=== PATIENT | male | born 2000 | race Caucasian/White ===

== ENCOUNTER 2018-01-29 10:41 | Observation (INO) | payer OTHER ==
[2018-01-29] MEDS ORDERED: LR 1,000 ML IV ONE (11:35)
[2018-01-29] MEDS ORDERED: LIDOCAINE 1% 2 ML INJ ID PRN (11:35)
[2018-01-29] MEDS ORDERED: OXYMETAZOLINE 30 ML NASAL SPRAY ONE (11:47)
[2018-01-29] MEDS ORDERED: BACITRACIN ZINC 14.2 GM OINTTUBE TP ONE (11:47)
[2018-01-29] MEDS ORDERED: MIDAZOLAM 2 MG/2 ML VIAL IVP ONE (11:47)
--- NOTE | 2018-01-29 11:47 | PDHPUP ---
History & Physical Update H&P update statement: This history and physical update is based on an assessment of the patient which was completed after admission or registration (within 24 hours), but prior to the surgery/procedure. H&P update: H&P reviewed & patient examined, no change in patient's condition since H&P completed
[2018-01-29] MEDS ORDERED: BUPIVACAINE/EPI 0.25% 30 ML SDV ONE (11:48)
[2018-01-29] MEDS ORDERED: LIDO/EPI 1% **Not for Epidural 20 ML MDV ONE (11:48)
[2018-01-29] MEDS ORDERED: MIDAZOLAM 2 MG/2 ML VIAL ONE (11:48)
--- NOTE | 2018-01-29 11:48 | PDANEPAE ---
ANE Past Medical History - Cardiovascular History Hx Hypertension: No Hx Arrhythmias: No Hx Chest Pain: No Hx Coronary Artery / Peripheral Vascular Disease: No Hx CHF / Valvular Disease: No Hx Palpitations: No - Pulmonary History Hx COPD: No Hx Asthma/Reactive Airway Disease: No Hx Recent Upper Respiratory Infection: No Hx Oxygen in Use at Home: No Hx Sleep Apnea: Yes Sleep Apnea Screening Result - Last Documented: Positive Pulmonary History Comment: SAMRA positive - uses Cpap - Neurologic History Hx Cerebrovascular Accident: No Hx Seizures: No Hx Dementia: No - Endocrine History Hx Diabetes: No - Renal History Hx Renal Disorders: No - Liver History Hx Hepatic Disorders: No - Neurological & Psychiatric Hx Hx Neurological and Psychiatric Disorders: Yes Neurological / Psychiatric History Comment: states was dx with depression a few years ago but not an issue recently - Cancer History Hx Cancer: Yes Cancer History Comment: spinal kyphosis - Congenital Disorder History Hx Congenital Disorders: No - GI History Hx Gastrointestinal Disorders: No - Other Health History Other Health History: has permanent bridge retainer on lower teeth. deviated septum - Chronic Pain History Chronic Pain: Yes (back pain) - Surgical History Prior Surgeries: meringoplasty. left arm reset ANE Review of Systems Review of Systems: - Exercise capacity METS (RN): 5 METS ANE Patient History - Allergies Allergies/Adverse Reactions: No Known Allergies Allergy (Verified 01/20/18 15:52) - Home Medications Home Medications: Multivitamins [Multivitamin (*)] 1 each PO DAILY 01/20/18 [Last Taken 01/26/18] - Smoking Hx Smoking Status: Never smoked - Family Anes Hx Family Hx Anesthesia Complications: none ANE Labs/Vital Signs - Vital Signs Height: 195.58 cm Weight: 95.254 kg ANE Physical Exam - Airway Neck exam: FROM Mallampati Score: Class 2 Mouth exam: normal dental/mouth exam - Pulmonary Pulmonary: no respiratory distress - Cardiovascular Cardiovascular: regular rate and rhythym - ASA Status ASA Status: I ANE Anesthesia Plan Anesthesia Plan: general endotracheal anesthesia
[2018-01-29] MEDS ORDERED: fentaNYL 250 MCG/5 ML INJ ONE (11:54)
[2018-01-29] MEDS ORDERED: PROPOFOL 200 MG/20 ML VIAL ONE (11:54)
[2018-01-29] MEDS ORDERED: DEXAMETHASONE 4 MG/ML VIAL ONE ×2 (11:54)
[2018-01-29] MEDS ORDERED: ROCURONIUM 50 MG/5 ML VIAL ONE (11:54)
[2018-01-29] MEDS ORDERED: LABETALOL HCL 5 MG/ML 20 ML MDV ONE (13:32)
[2018-01-29] MEDS ORDERED: SUGAMMADEX SODIUM 200 MG/2 ML VIAL IVP ONE (13:33)
[2018-01-29] MEDS ORDERED: MEPERIDINE 25 MG/0.5 ML AMP IVP PRN (14:58)
[2018-01-29] MEDS ORDERED: ONDANSETRON 4 MG/2 ML VIAL IVP PRN (14:58)
[2018-01-29] MEDS ORDERED: NALOXONE HCL 0.4 MG/ML INJ IVP PRN ×2 (14:58)
[2018-01-29] MEDS ORDERED: ALBUTEROL 3 ML DEYVIAL IH PRN (14:58)
[2018-01-29] MEDS ORDERED: OXYMETAZOLINE 30 ML NASAL SPRAY EACHNARE PRN (14:58)
[2018-01-29] MEDS ORDERED: D5W 1/2 NS 1,000 ML IV SCH (15:00)
--- NOTE | 2018-01-29 15:00 | POSTANESTH ---
Post Anesthetic Evaluation Cardiovascular Status: Similar to Pre-Op Cond Respiratory Status: Similar to Pre-op Cond. Level of Consciousness/Mental Status: Mildly Sleepy, Arousable Pain Control: Adequate, Prn Tx Ordered Nausea/Vomiting Control: Adequate, Prn Tx Ordered Complications Possibly Related to Anesthesia: None Noted
[2018-01-29] MEDS ORDERED: fentaNYL 100 MCG/2 ML INJ ONE ×2 (15:03→17:16)
[2018-01-29] MEDS: fentaNYL 100 MCG/2 ML INJ IVP PRN ×5 (15:06→17:19)
--- NOTE | 2018-01-29 15:08 | POSTOPPROG ---
Post Op Note Date of Operation: 01/29/18 Surgeon: Zane Burns Anesthesia: GET(General Endotracheal) Pre-op Diagnosis: Septal dev, Inf turb hypert, [place] tonsil hypert Post-op Diagnosis: Septal dev, Inf turb hypert, [place] tonsil hypert Indication: Septal dev, Inf turb hypert, [place] tonsil hypert Procedure: Septo, turb smr, palatine tonsil, lingual tonsil Findings: Septal dev, Inf turb hypert, [place] tonsil hypert Inf/Abcess present in the surg proc area at time of surgery?: No Depth: Deep Incisional (Fascial) EBL: Minimal Total fluids administered: 800 Complications: none Specimen(s): tonsils
[2018-01-29] MEDS ORDERED: LORazepam 2 MG/ML INJ ONE (15:13)
[2018-01-29] MEDS: LORazepam 2 MG/ML INJ IVP PRN ×2 (15:16→23:23)
[2018-01-29] MEDS ORDERED: ONDANSETRON 4 MG/2 ML VIAL ONE (15:53)
[2018-01-29] MEDS: HYDROCOD/APAP 7.5/325 IN 15ML UDCUP PO PRN ×2 (16:41→20:07)
[2018-01-29] MEDS ORDERED: LORazepam 2 MG/ML INJ IVP ONE (18:45)
[2018-01-30] MEDS: HYDROCOD/APAP 7.5/325 IN 15ML UDCUP PO PRN ×3 (01:10→10:36)
[2018-01-30] MEDS: LORazepam 2 MG/ML INJ IVP PRN ×2 (03:35→07:47)
[2018-01-30 08:04] VITALS: BP 139/77
[2018-01-30] MEDS ORDERED: DEXAMETHASONE 4 MG/ML VIAL IVP ONE (09:23)
--- NOTE | 2018-01-30 09:27 | SOAPPROG ---
SOAP Progress Note Assessment/Plan: Assessment: S/P 01/29/18 Lingual tonsillectomy, palatine tonsillectomy, septoplasty, inferior turbinate submucosal resection. Pain controlled appropriate for the procedure. Tolerating liquids. Plan: Home SEE PRINTED DISCHARGE INSTRUCTIONS 01/30/18 09:24 Subjective: Complaints of throat pain. [place] liquid diet. Objective: Vital Signs Temp Pulse Resp BP Pulse Ox 36.6 C 78 16 139/77 H 97 01/30/18 08:00 01/30/18 08:00 01/30/18 08:00 01/30/18 08:00 01/30/18 08:00 01/29/18 01/30/18 01/31/18 05:59 05:59 05:59 Intake Total 1050 Output Total 20 Balance 1030 - Pending Discharge Pending Discharge Within 24 Hours: Yes Pending Discharge Date: 01/31/18 Pending Discharge Time: 11:00 Physical Exam - Physical Exam General Appearance: alert, mild distress (anxiety, throat pain) EENT: No pharynx normal (no bleeding, tonsillar fossae clear), No rhinorrhea ( crusting at splints, no active bleeding) Neck: normal inspection Neuro/Psych: alert, oriented x 3 ICD10 Worksheet Patient Problems: Problems Problem Status Onset Post-tonsillectomy pain Acute S/P nasal surgery Acute - ICD10 Problem Qualifiers (1) Post-tonsillectomy pain (2) S/P nasal surgery
[2018-01-30] MEDS ORDERED: LR 500 ML IV SCH (09:30)
== END 2018-01-30 12:04 | disposition home or self-care (01) ==
LOC: F3E 11:18
PROVIDERS: ADMIT Otolaryngology; ATTEND Otolaryngology
DX: J34.2 Deviated nasal septum (principal); J34.3 Hypertrophy of nasal turbinates; J35.1 Hypertrophy of tonsils; G47.33 Obstructive sleep apnea (adult) (pediatric)
CPT/HCPCS: 30140; 30520; 42826; G0378; J1100; J2060; J2250; J2270; J2405; J2704; J3010